=== PATIENT | male | born 1970 | race Native Hawaiian/Other Pacific Islander ===

== ENCOUNTER 2019-01-23 09:09 | Emergency (ER) | payer OTHER ==
[~2019-01-23] VITALS: Ht 188 cm; Wt 117.9 kg
[2019-01-23 09:13] VITALS: BP 120/91; TEMP 98.3
[2019-01-23] MEDS ORDERED: NEXIUM20 M1 PO (09:27)
== END 2019-01-23 10:00 | disposition home or self-care (01) ==
LOC: ED 09:09
DX: M54.5 Low back pain (principal); G89.29 Other chronic pain; X50.9XXA Other and unspecified overexertion or strenuous movements or postures, initial encounter
CPT/HCPCS: 96372; 99283; J1885; J2930